=== PATIENT | male | born 1985 | race African-American/Black ===

== ENCOUNTER 2016-06-06 19:20 | Emergency (ER) | payer BC ==
[~2016-06-06] VITALS: Ht 172.7 cm; Wt 63.5 kg
[~2016-06-06 19:20] MED LIST: BENZ100C PO; BUDE10.2 IH; ESOM40CA PO; FAMO-63 PO; PRED50TA PO; RANI150T6 PO; VENTOLIN HFA18 GM IH
[2016-06-06 19:24] VITALS: BP 159/86
[2016-06-06] MEDS ORDERED: AMOX1TAB61 PO (19:48)
--- NOTE | 2016-06-06 19:49 | PHYS DOC ---
Past Medical History Past Medical History: Anxiety, Asthma, Other Additional Past Medical Histor: uvula swells, thrush, hernia Past Surgical History: Tonsillectomy, Other Additional Past Surgical Histo: hiatal hernia Alcohol Use: Occasionally Drug Use: None Adult General Chief Complaint Chief Complaint: SORE THROAT HPI HPI Patient is a 30 year old male presents to the emergency department with a history of sinus pressure and congestion with a sore throat that started last night. Patient states he has taken sinus medication with little to no relief. Patient denies fever, chills, nausea or vomiting, denies cough at the current time. Review of Systems Review of Systems Constitutional: Denies fever or chills [] Eyes: Denies change in visual acuity, redness, or eye pain [] HENT: nasal congestion and sore throat [] Respiratory: Denies cough or shortness of breath [] Cardiovascular: No additional information not addressed in HPI [] GI: Denies abdominal pain, nausea, vomiting, bloody stools or diarrhea [] : Denies dysuria or hematuria [] Musculoskeletal: Denies back pain or joint pain [] Integument: Denies rash or skin lesions [] Neurologic: Denies headache, focal weakness or sensory changes [] Allergies Allergies Allergies Coded Allergies Type Severity Reaction Last Updated Verified No Known Drug Allergies 08/12/15 No Physical Exam Physical Exam Constitutional: Well developed, well nourished, no acute distress, non-toxic appearance. [] HENT: Normocephalic, atraumatic, bilateral external ears normal, oropharynx moist, no oral exudates, nose normal. Bilateral tympanic membranes appear to be normal. Throat with postnasal drip noted redness noted in the throat no exudate noted. Patient with maxillary and frontal sinus tenderness. Eyes: PERRLA, EOMI, conjunctiva normal, no discharge. [] Neck: Normal range of motion, no tenderness, supple, no stridor. [] Cardiovascular:Heart rate regular rhythm, no murmur [] Lungs & Thorax: Bilateral breath sounds clear to auscultation [] Skin: Warm, dry, no erythema, no rash. [] Back: No tenderness Extremities: No tenderness, no cyanosis, no clubbing, ROM intact, no edema. [] Neurologic: Alert and oriented X 3, normal motor function, normal sensory function, no focal deficits noted. [] Psychologic: Affect normal, judgement normal, mood normal. [] Current Patient Data Vital Signs Vital Signs Date Time Temp Pulse Resp B/P Pulse Ox O2 Delivery O2 Flow Rate FiO2 06/06/16 19:24 98.3 112 20 100 Room Air 98.3 EKG EKG [] Radiology/Procedures Radiology/Procedures [] Course & Med Decision Making Course & Med Decision Making Pertinent Labs and Imaging studies reviewed. (See chart for details) Patient will be placed on Augmentin with recommendations to take Sudafed and Mucinex DM [id number]. Patient will be discharged home in stable condition recommendations for Tylenol and ibuprofen for fever chills or generalized body aches and discomfort. Since symptoms to return back to emergency department been provided. Patient agrees with discharge instructions treatment regimens and follow-up recommendations. [] Dragon Disclaimer Dragon Disclaimer This electronic medical record was generated, in whole or in part, using a voice recognition dictation system. Departure Departure Impression: Primary Impression: Sinusitis Disposition: HOME, SELF-CARE Condition: STABLE Referrals: PADMINI ALVARES (PCP) Patient Instructions: Sinusitis, [id number] Additional Instructions: Your being treated for sinusitis infection. Medication as prescribed. Sudafed instructed by adolescent medicine specialist [id number]. Mucinex DM instructed by adolescent medicine specialist [id number] as well. Tylenol or ibuprofen for fever chills or generalized body aches and discomfort. Drink plenty of fluids. Follow-up to primary care physician next 5-7 days. Return back to emergency prior signs and symptoms of become worse. Scripts Amoxicillin/Potassium Clav (Augmentin 875-125 Tablet)1 Each Tablet1 Tab PO BID # 20 TAB Prov:JYOTHI CARL APRN 06/06/16 JYOTHI CARL [employer] Jun 06, 2016 19:49
== END 2016-06-06 19:57 | disposition home or self-care (01) ==
LOC: ER 19:20
DX: J32.9 Chronic sinusitis, unspecified (principal); J45.909 Unspecified asthma, uncomplicated; Z90.89 Acquired absence of other organs
CPT/HCPCS: 99283

== ENCOUNTER → 2018-10-26 | Outpatient (CLI) | payer BC ==
[~2018-10-26] MED LIST changes: +AMOX1TAB61 PO; +RANI-376 PO; -RANI150T6 PO; +SINCALIDE 1.45 MCG in IV NORMAL SALINE 50ML 30 ML IV ONE
--- NOTE | 2018-10-26 10:20 | RAD ---
Exam performed: Nuclear medicine hepatobiliary scan. History: Intermittent chronic epigastric pain COMPARISON: None available. FINDINGS: Following intravenous administration of 5.5 mCi of Choletec tagged with Tc, sequential gamma camera images of the right upper quadrant of the abdomen were obtained. There is prompt accumulation of radionuclide in the liver which appears to be unremarkable Prompt accumulation in the central intrahepatic biliary radicals, gallbladder, common bile duct and small bowel is noted. Patient was also infused with 1.4mcg of CCK and gallbladder ejection fraction was calculated which measures 20% Impression: 1. Decreased gallbladder ejection fraction likely chronic cholecystitis or biliary dyskinesia. Electronically signed by: Zac Dennis MD (10/26/2018 10:16 AM) [place] [id number]
== END | disposition home or self-care (01) ==
LOC: NM 08:00
PROVIDERS: ATTEND Internal Medicine Gastroenterology
DX: R10.13 Epigastric pain (principal); R11.0 Nausea
CPT/HCPCS: 78227; A9537; J2805

== ENCOUNTER 2018-12-06 06:13 | Day surgery (SDC) | payer BC ==
[~2018-12-06] VITALS: Ht 172.7 cm; Wt 72.5 kg
[~2018-12-06 06:13] MED LIST changes: -SINCALIDE 1.45 MCG in IV NORMAL SALINE 50ML 30 ML IV ONE
[2018-12-06] MEDS ORDERED: OMEP20CA10 PO (06:51)
[2018-12-06] MEDS ORDERED: ALPR0.5T6 PO (06:52)
[2018-12-06] MEDS ORDERED: ceFAZolin 2GM PREMIX 2 GM/50 ML BAG IV ONE (07:00)
[2018-12-06] MEDS ORDERED: IV RINGERS,LACTATED 1000ML 1,000 ML IV SCH ×2 (07:00→08:39)
[2018-12-06] MEDS ORDERED: IOHEXOL 300 MG/ML 50 ML VIAL. ONE (07:08)
[2018-12-06] MEDS ORDERED: SURGICEL HEMOSTAT 4X8 EACH. ONE (07:08)
[2018-12-06] MEDS ORDERED: BUPIVACAINE MPF 0.5% 30 ML VIAL. ONE (07:09)
[2018-12-06] MEDS ORDERED: SUCCINYLCHOLINE 200 MG/10 ML VIAL. ONE (07:13)
[2018-12-06] MEDS ORDERED: ROCURONIUM 50 MG/5 ML VIAL. ONE (07:13)
[2018-12-06] MEDS ORDERED: LIDOCAINE 2% PF 5 ML VIAL. ONE (07:13)
[2018-12-06] MEDS ORDERED: PROPOFOL 20 ML IV ONE (07:13)
[2018-12-06] MEDS ORDERED: fentaNYL PF VIAL 100 MCG/2 ML VIAL ONE ×3 (07:14→09:00)
[2018-12-06] MEDS ORDERED: OXYC1TAB15 PO (07:49)
[2018-12-06] MEDS ORDERED: DEXAMETHASONE SOD PHOS 20 MG/5 ML VIAL. ONE (07:50)
[2018-12-06] MEDS ORDERED: DESFLURANE 61 TO 120 MINUTES IH ONE (07:50)
[2018-12-06] MEDS ORDERED: NEOSTIGMINE METHYLSULFATE 5 MG/5 ML SYRINGE. ONE (07:57)
[2018-12-06] MEDS ORDERED: GLYCOPYRROLATE 1 MG/5 ML VIAL. ONE (07:57)
[2018-12-06] MEDS ORDERED: ONDANSETRON PF 4 MG/2 ML VIAL. ONE (07:57)
[2018-12-06] MEDS ORDERED: KETOROLAC 30 MG/ML VIAL. ONE (08:34)
--- NOTE | 2018-12-06 08:42 | PDOC4 ---
Operative Note Operative Note Operative Note: Preoperative Diagnosis: Biliary dyskinesia Postoperative Diagnosis: Same Procedure: Laparoscopic cholecystectomy with intraoperative cholangiogram Surgeons: Billy Hot Stone Setter: Melida CONTRERAS Anesthesia: Gen. Estimated Blood Loss: 10 mL Specimen: Gallbladder to pathology Drains: None Complications: None Indications: The patient is a 33-year-old male who is been experiencing recurrent upper abdominal pain. His evaluation included a PIPIDA scan showing a low gallbladder ejection fraction. Surgical treatment was offered by means of a laparoscopic cholecystectomy. The risks of surgery were discussed which include bleeding, infection, bile duct injury, bile leak, pain, the potential for additional surgeries or procedures. The patient understands and would like to proceed. Description: The patient was taken to the operating room and laid supine on the operating table. General anesthesia was performed. The abdomen was prepped with ChloraPrep and draped in a standard surgical fashion. A small infraumbilical incision was made with a scalpel. The Veress needle was then inserted and a pneumoperitoneum was then created. A 5 mm trocar was then inserted and the laparoscope was introduced. In the upper midabdomen a 5 mm trocar was inserted and in the right upper quadrant two 2.3 mm mini lap graspers were inserted. The gallbladder was retracted cephalad. The cystic duct was dissected free from surrounding tissues. One clip was placed on the duct near the gallbladder junction. An opening was made in the duct and a cholangiocatheter placed within and secured with a clip. Using contrast dye and fluoroscopy an intraoperative cholangiogram was performed that appeared unremarkable. The clip and catheter were then withdrawn. Three clips were placed on the cystic duct and it was divided. The cystic artery was then identified, dissected free, doubly clipped and divided as well. The gallbladder was then mobilized away from the liver with cautery. The umbilical 5 millimeter trocar was exchanged for an 11 millimeter trocar. The gallbladder was then placed in an endoscopic bag and extracted at the umbilical trocar site. The fascia there was closed with an 0 Vicryl suture. All blood and irrigation fluid was suctioned and hemostasis was good. The remaining ports were removed and the pneumoperitoneum was relieved. The skin incisions were injected with half percent Marcaine with epinephrine, and all were closed using 4-0 Monocryl suture. Steri-Strips and dressings were then applied. The patient tolerated the procedure well and was sent to the recovery room in stable condition. At the end of the case all counts were correct. JOSE PRINGLE MD Dec 06, 2018 08:42
[2018-12-06] MEDS ORDERED: ONDANSETRON PF 4 MG/2 ML VIAL. IV PRN (08:45)
[2018-12-06] MEDS ORDERED: fentaNYL PF VIAL 100 MCG/2 ML VIAL IV PRN (08:45)
[2018-12-06] MEDS ORDERED: MORPHINE SULFATE 2 MG/ML VIAL. IV PRN (08:45)
[2018-12-06] MEDS ORDERED: PROCHLORPERAZINE 10 MG/2 ML VIAL. IV PRN (08:45)
[2018-12-06] MEDS ORDERED: HYDROmorphone 2 MG/ML VIAL IV PRN (08:45)
[2018-12-06] MEDS ORDERED: LIDOCAINE 1% PF 2 ML VIAL. ID PRN (08:45)
[2018-12-06] MEDS: fentaNYL PF VIAL 100 MCG/2 ML VIAL IV PRN ×2 (09:16→09:23)
[2018-12-06 09:30] VITALS: BP 137/77
[2018-12-06] MEDS ORDERED: oxyCODONE/APAP 5/325 1 TAB TABLET PO ONE ×2 (09:30)
--- NOTE | 2018-12-06 09:37 | RAD ---
CHOLANGIOGRAM INTRAOPERATIVE History: Cholangiogram done in OR with C-arm Comparison: None. Technique/findings: 2 spot fluoroscopic images obtained intraoperatively during intraoperative cholangiogram. The cystic duct was cannulated. Contrast opacifies intrahepatic ducts. Contrast opacifies the common bile duct and small bowel. No stricture or obstruction identified. Impression: 1. Intraoperative cholangiogram performed. No common bile duct stricture, obstruction or injury. Electronically signed by: Drew Doherty DO (12/06/2018 9:34 AM) [facility]
--- NOTE | 2018-12-07 18:06 | PATHOLOGY ---
[facility] Accession Number: [id number] . 01 Material submitted: . gallbladder - GALLBLADDER AND CONTENTS . 01 Clinical history: . Biliary dyskinesia . 02 Diagnosis: Gallbladder, cholecystectomy: - Chronic cholecystitis. (JPM:deanna; 12/07/2018) QMS 12/07/2018 1344 Local . 02 Comment: There are no calculi identified within the gallbladder lumen or specimen container. Sections of the gallbladder show mild chronic inflammation with a few admixed eosinophils. There is no evidence of malignancy. (JPM:deanna; 12/07/2018) . 02 Electronically signed: . Brian Forrest MD, Pathologist NPI- [id number] . 01 Gross description: . The specimen is received in formalin, labeled "Elia Windy, gallbladder and contents". Received is an intact gallbladder measuring 7.8 x 3.1 x 2.8 cm in greatest dimensions displaying a blue-mosher serosal surface. Opening the specimen reveals a velvety, bile-stained mucosa with a gallbladder wall thickness of 0.1 cm. Calculi are not present, and no masses or lesions are noted grossly. Multi Disciplined Language Analyst sections, to include the proximal margin, are submitted in cassette A1. (CAA; 12/06/2018) QAC/QAC 12/07/2018 1343 Local . 02 Pathologist provided ICD-10: K81.1 . 02 CPT . 510616 Specimen Comment: A courtesy copy of this report has been sent to [phone], [phone] Specimen Comment: [id number] Specimen Comment: Report sent to / DR CACERES Performed at: 01 [facility] [address], [place], [place] [id number] MD Renato Wren MD Phone: [phone] Performed at: 02 [facility] [address], [place] [id number] MD Brian Forrest MD Phone: [phone]
== END 2018-12-06 10:05 | disposition home or self-care (01) ==
LOC: SURG 06:13
PROVIDERS: ATTEND Surgery
DX: K82.8 Other specified diseases of gallbladder (principal); K81.1 Chronic cholecystitis; J45.909 Unspecified asthma, uncomplicated; K21.9 Gastro-esophageal reflux disease without esophagitis; K44.9 Diaphragmatic hernia without obstruction or gangrene; F41.9 Anxiety disorder, unspecified; Z98.890 Other specified postprocedural states; Z72.89 Other problems related to lifestyle
CPT/HCPCS: 47563; 74300; A7015; J0330; J0696; J1100; J1885; J2001; J2405; J2704; J2710; J3010; J3490; J7030; Q9967; 88304